=== PATIENT | female | born 1980 | race Hispanic/Latino ===

== ENCOUNTER 2017-07-01 10:13 | Outpatient (CLI) | payer BC ==
--- NOTE | 2017-07-02 11:38 | MMO ---
MAMMOGRAM DIGITAL SCREENING BILATERAL: DATE: A 36-year-old female for baseline screening mammogram. Strong family history of breast cancer COMPARISON: None available. TECHNIQUE: Digital mammographic views. Computer-aided detection (CAD) utilized. FINDINGS: There are scattered areas of fibroglandular density. There is no evidence of suspicious mass, suspicious calcifications, or architectural distortion. IMPRESSION: 1) BIRADS 1- Negative. 2) Recommendation: routine bilateral annual screening mammogram (unless the patient develops suspicio us clinical findings that would warrant earlier imaging follow up). renee [] POS: ANKIT
== END 2017-07-01 10:14 | disposition home or self-care (01) ==
LOC: SCSMAMMO 10:13
PROVIDERS: ATTEND Student in an Organized Health Care Education/Training Program
DX: Z12.31 Encounter for screening mammogram for malignant neoplasm of breast (principal)
CPT/HCPCS: 77067; G0202